=== PATIENT | female | born 1995 | race Hispanic/Latino ===

== ENCOUNTER → 2023-08-02 | Emergency (ER) | payer SELFPAY ==
[~2023-08-02] MED LIST: FAMOTIDINE 20 MG/2 ML VIAL IV ONE; NA CHLORIDE 0.9% 1,000 ML ONE; ONDANSETRON 4 MG/2 ML VIAL ONE; PROMETHAZINE INJ 25 MG/ML AMP ONE
--- OUTSIDE RECORDS SUMMARY | 2023-08-02 09:59 | XMS REPORT | Continuity of Care Document ---
Author Name Unknown Address [address] [facility] [address] [place] [address] [facility] Address [address] [facility] [address] [place] [address] Care Team Providers Care Lathe Scalper Operator Name Role Phone Denis Carter Attending Clinician Unavailable Davar_P Attending Clinician Unavailable Davar_P Admitting Clinician Unavailable Payers Payer Name Policy Type Policy Number Effective Date Expirati on Date Source Allergies, Adverse Reactions, Alerts Allergy Name Allergy Type Status Severity Reaction(s) Onset Date Inactive Date Treating Clinician Comments Source No Known Drug Allergie s DA Active U 03-18 00:00: 00 [facility] Encounters Start Date/Time End Date/Time Encounter Type Admission Type Attending Clinicians Care Facility Care Department Encounter ID Source 2023-03-18 02:10:00 2023-03-18 03:55:00 Emergency Emergency Denis Carter [facility] [id number] [facility] 2021-07-19 03:51:00 2021-07-19 03:51:00 Outpatient Davar_P VFP VFP [id number] [facility] e
[2023-08-02 11:27] LABS: Absolute Lymphocytes (CBC) 1.3 K/uL (0.7-4.9); Hematocrit 49.2 % (36.0-45.0); Lymphocytes % 9.4 % (15.3-44.8); MCV 87.1 fL (80-100); MPV 7.9 fL (7.6-11.3); Platelets 411 thou/uL (152-406); RBC Red Blood Cell Count 5.64 M/uL (3.86-4.86)
[2023-08-02 11:51] LABS: Albumin 4.4 g/dL (3.4-5.0); Bilirubin Total 0.7 mg/dL (0.2-1.0); Potassium 3.8 mEq/L (3.5-5.1); Protein, Total 9.1 g/dL (6.4-8.2)
--- NOTE | 2023-08-02 12:42 | EDPHYS ---
Physician Documentation [facility] Name: Alma Morrison Age: 28 yrs Sex: Female : 1995 Arrival Date: 08/02/2023 Time: 09:57 Bed 15 Private MD: ED Physician Ang Lopez HPI: 08/02 11:41 This 28 yrs old Female presents to ER via Ambulatory with complaints of ms3 Dehydrated. 11:41 28-year-old female with no past medical history presents to the emergency department ms3 for nausea, vomiting that has been ongoing for 3 days. Patient denies sick contacts. Patient denies pain. Patient denies any alleviating or inciting factors. 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 - Social history:: Smoking status: Patient denies any tobacco usage or history of. ROS: 11:41 Constitutional: Negative for fever, and chills. Neck: Negative for injury, pain, and ms3 swelling, Cardiovascular: Negative for chest pain, and palpitations. Respiratory: Negative for shortness of breath, cough, wheezing, and pleuritic chest pain, 11:41 MS/Extremity: Negative for injury and deformity, Skin: Negative for injury, rash, and discoloration, 11:41 Abdomen/GI: Positive for nausea and vomiting, Negative for abdominal pain, diarrhea, 11:41 All other systems are negative, Exam: 11:41 Constitutional: This is a well developed, well nourished patient who is awake, alert, ms3 and in no acute distress. Head/Face: Normocephalic, atraumatic. Neck: Trachea midline, no cervical lymphadenopathy. Supple, full range of motion without nuchal rigidity, or vertebral point tenderness. No Meningismus. Cardiovascular: Regular rate and rhythm with a normal S1 and S2. No gallops, murmurs, or rubs. Normal PMI, no JVD. No pulse deficits. Respiratory: Lungs have equal breath sounds bilaterally, clear to auscultation and percussion. No rales, rhonchi or wheezes noted. No increased work of breathing, no retractions or nasal flaring. Abdomen/GI: Soft, non-tender, with normal bowel sounds. No distension or tympany. No guarding or rebound. No evidence of tenderness throughout. Skin: Warm, dry with normal turgor. Normal color with no rashes, no lesions, and no evidence of cellulitis. MS/ Extremity: Pulses equal, no cyanosis. Neurovascular intact. Full, normal range of motion. Vital Signs: 10:12 BP 119 / 87; Pulse 63; Resp 16; Temp 98.2(TE); Pulse Ox 97% on R/A; Weight 45.36 kg; hb Height 5 ft. 2 in. ; Pain 8/10; 11:19 BP 104 / 68; Pulse 59; Resp 15; Pulse Ox 100% on R/A; mb9 12:00 BP 111 / 71; Pulse 59; Resp 18; Pulse Ox 100% on R/A; me1 13:00 BP 115 / 90; Pulse 55; Resp 16; Pulse Ox 100% on R/A; me1 14:00 BP 106 / 75; Pulse 71; Resp 16; Pulse Ox 100% on R/A; me1 14:47 BP 117 / 86; Pulse 68; Resp 17; Pulse Ox 100% on R/A; me1 10:12 Body Mass Index 18.29 (45.36 kg, 157.48 cm) hb 10:12 Pain Scale: Adult hb MDM: 10:40 Patient medically screened. ms3 11:41 Differential diagnosis: Nonspecific abd pain, gastritis, Dehydration versus electrolyte ms3 abnormality. 15:03 Data reviewed: vital signs, nurses notes, lab test result(s), radiologic studies, CT ms3 scan, and as a result, I will discharge patient. I considered the following discharge prescriptions or medication management in the emergency department Medications were administered in the Emergency Department. See MAR. Independent interpretation of the following test(s) in the Emergency Department CT Scan: My interpretation is CT abdomen pelvis images reviewed by me do not reveal bowel obstruction. Counseling: I had a detailed discussion with the patient and/or guardian regarding the historical points, exam findings, and any diagnostic results supporting the discharge/admit diagnosis, lab results, radiology results, the need for outpatient follow up, to return to the emergency department if symptoms worsen or persist or if there are any questions or concerns that arise at home. ED course: Discussed labs, CT images with patient. Patient to follow-up with primary care physician 2 to 3 days. Patient understands agrees with plan. All questions were answered. Return precautions discussed include worsening symptoms, or any other concerns. 08/02 10:27 Order name: CBC with Diff; Complete Time: 11:55 ms3 08/02 10:27 Order name: CMP; Complete Time: 11:55 ms3 08/02 10:27 Order name: Lipase; Complete Time: 11:55 ms3 08/02 13:59 Order name: Test, Urine; Complete Time: 14:24 ct1 08/02 13:46 Order name: CT Abd/Pelvis - IV Contrast Only; Complete Time: 14:43 ms3 08/02 10:27 Order name: IV Saline Lock; Complete Time: 11:13 ms3 08/02 10:27 Order name: Labs collected and sent; Complete Time: 11:13 ms3 08/02 12:07 Order name: PO challenge; Complete Time: 12:45 ms3 Administered Medications: 11:13 Drug: NS 0.9% IV 1000 ml IV at 1 bolus Per protocol; 1000 mL bolus Route: IV; Rate: 1 mb9 bolus; Site: right upper arm; 12:51 Follow up: IV Status: Completed infusion; IV Intake: 1000ml me1 11:18 Drug: Famotidine IVP 20 mg IVP once; dilute with 10 mL 0.9% NaCl; give over 2 minutes mb9 Route: IVP; Site: right upper arm; 12:51 Follow up: Response: No adverse reaction me1 12:51 Drug: Ondansetron IVP 4 mg IVP once; over 2 minutes Route: IVP; Site: right upper arm; me1 13:53 Follow up: Response: No adverse reaction; Nausea unchanged me1 13:51 Drug: Promethazine IM 25 mg IM once Route: IM; Site: right gluteus; me1 14:32 Follow up: Response: No adverse reaction; Nausea is decreased me1 Disposition Summary: 08/02/23 14:44 Discharge Ordered Notes: Location: Home(08/02/23 14:44) ms3 Condition: Stable(08/02/23 14:44) ms3 Diagnosis - Nausea with vomiting, unspecified(08/02/23 14:44) ms3 - Dehydration(08/02/23 14:44) ms3 Followup: ms3 - With: Rambo Seo DO - When: 2 - 3 days - Reason: Recheck today's complaints Discharge Instructions: - Discharge Summary Sheet ms3 - Nausea and Vomiting, Adult ms3 Forms: - Medication Reconciliation Form ms3 - Thank You Letter ms3 - Antibiotic Education ms3 - Prescription Opioid Use ms3 - Patient Portal Instructions ms3 - Leadership Thank You Letter ms3 Prescriptions: - ondansetron 4 mg Oral Tablet,disintegrating - take 1 tablet ORAL route every 8 hours as needed for nausea and vomiting; 15 ms3 tablet; Refills: 0, Product Selection Permitted Signatures: Dispatcher [employer] EDMS Aline Gavin, RN RN Ang Lopez DO DO ms3 Ama, Sujey Schmitz, RN RN mb9 Guerita Montemayor RN RN me1 Corrections: (The following items were deleted from the chart) 12:48 12:41 Home ms3 ms3 12:48 12:41 Stable ms3 ms3 12:48 12:41 Nausea with vomiting, unspecified ms3 ms3 12:48 12:41 Dehydration ms3 ms3 13:45 13:13 Home ms3 ms3 13:45 13:13 Stable ms3 ms3 13:45 13:13 Nausea with vomiting, unspecified ms3 ms3 13:45 13:13 Dehydration ms3 ms3 14:03 14:00 Test, Urine+UC.LAB.BRZ ordered. EDMS EDMS
--- NOTE | 2023-08-02 12:42 | ER ---
Nurse's Notes [facility] Name: Alma Morrison Age: 28 yrs Sex: Female : 1995 Arrival Date: 08/02/2023 Time: 09:57 Bed 15 Private MD: Diagnosis: Nausea with vomiting, unspecified;Dehydration Presentation: 08/02 10:12 Chief complaint: N/V, low back pain, and pain with urination x 2-3 days. Not tolerating hb fluids. Coronavirus screen: At this time, the client does not indicate any symptoms associated with coronavirus-19. Ebola Screen: No symptoms or risks identified at this time. Initial Sepsis Screen: Does the patient meet any 2 criteria? No. Patient's initial sepsis screen is negative. Does the patient have a suspected source of infection? No. Patient's initial sepsis screen is negative. Risk Assessment: Do you want to hurt yourself or someone else? Patient reports no desire to harm self or others. Onset of symptoms was July 31, 2023. 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 - Social history:: Smoking status: Patient denies any tobacco usage or history of. Screenin:24 [facility] ED Fall Risk Assessment (Adult) History of falling in the last 3 months, mb9 including since admission No falls in past 3 months (0 pts) Confusion or Disorientation No (0 pts) Intoxicated or Sedated No (0 pts) Impaired Gait No (0 pts) Mobility Assist Device Used No (0 pt) Altered Elimination No (0 pt) Score/Fall Risk Level 0 - 2 = Low Risk Oriented to surroundings, Maintained a safe environment, Educated pt \\T\\ family on fall prevention, incl call for assistance when getting out of bed. Abuse screen: Denies threats or abuse. Nutritional screening: No deficits noted. Tuberculosis screening: No symptoms or risk factors identified. Assessment: 11:12 General: Appears uncomfortable, Behavior is calm, cooperative. Pain: Complains of pain mb9 in back. Neuro: Patel Agitation-Sedation Scale (RASS): 0 - Alert and Calm Level of Consciousness is awake, alert, obeys commands, Oriented to person, place, time, situation, Appropriate for age. Cardiovascular: Patient's skin is warm and dry. Respiratory: Airway is patent Respiratory effort is even, unlabored, Respiratory pattern is regular, symmetrical. GI: Abdomen is flat, non-distended, Bowel sounds present X 4 quads. Abd is soft and non tender X 4 quads. Reports nausea, vomiting. : Urine is cloudy. EENT: No signs and/or symptoms were reported regarding the EENT system. Derm: Skin is pink, warm \\T\\ dry. Musculoskeletal: Range of motion: intact in all extremities. 12:46 General: Given some clear liquid options and saltine crackers. Refused stating, "my me1 stomach hurts really bad. I'm gonna throw up if I try that.". Vital Signs: 10:12 BP 119 / 87; Pulse 63; Resp 16; Temp 98.2(TE); Pulse Ox 97% on R/A; Weight 45.36 kg; hb Height 5 ft. 2 in. ; Pain 8/10; 11:19 BP 104 / 68; Pulse 59; Resp 15; Pulse Ox 100% on R/A; mb9 12:00 BP 111 / 71; Pulse 59; Resp 18; Pulse Ox 100% on R/A; me1 13:00 BP 115 / 90; Pulse 55; Resp 16; Pulse Ox 100% on R/A; me1 14:00 BP 106 / 75; Pulse 71; Resp 16; Pulse Ox 100% on R/A; me1 14:47 BP 117 / 86; Pulse 68; Resp 17; Pulse Ox 100% on R/A; me1 10:12 Body Mass Index 18.29 (45.36 kg, 157.48 cm) hb 10:12 Pain Scale: Adult hb ED Course: 09:58 Patient arrived in ED. mr 10:03 Ang Lopez DO is Attending Physician. ms3 10:14 Triage completed. hb 10:18 Arm band placed on. hb 10:23 Sujey Serrato RN is Primary Nurse. mb9 10:24 Placed in gown. Bed in low position. Call light in reach. Side rails up X 1. Client mb9 placed on continuous cardiac and pulse oximetry monitoring. NIBP monitoring applied. 11:12 No provider procedures requiring assistance completed. mb9 11:19 Inserted 20 g Midline placed to right upper arm by PRECIOUS Elizabeth. mb9 12:08 Report given to PRECIOUS Dexter. mb9 12:41 Rambo Seo DO is Referral Physician. ms3 13:13 Rambo Seo DO is Referral Physician. ms3 14:30 CT Abd/Pelvis - IV Contrast Only In Process Unspecified. EDMS 14:44 Rambo Seo DO is Referral Physician. ms3 14:57 Provided Education on: POC. Verbalized understanding. . me1 14:57 IV discontinued, intact, bleeding controlled, No redness/swelling at site. Pressure me1 dressing applied. Administered Medications: 11:13 Drug: NS 0.9% IV 1000 ml IV at 1 bolus Per protocol; 1000 mL bolus Route: IV; Rate: 1 mb9 bolus; Site: right upper arm; 12:51 Follow up: IV Status: Completed infusion; IV Intake: 1000ml me1 11:18 Drug: Famotidine IVP 20 mg IVP once; dilute with 10 mL 0.9% NaCl; give over 2 minutes mb9 Route: IVP; Site: right upper arm; 12:51 Follow up: Response: No adverse reaction me1 12:51 Drug: Ondansetron IVP 4 mg IVP once; over 2 minutes Route: IVP; Site: right upper arm; me1 13:53 Follow up: Response: No adverse reaction; Nausea unchanged me1 13:51 Drug: Promethazine IM 25 mg IM once Route: IM; Site: right gluteus; me1 14:32 Follow up: Response: No adverse reaction; Nausea is decreased me1 Medication: 11:13 VIS not applicable for this client. mb9 Intake: 12:51 IV: 1000ml; Total: 1000ml. me1 Outcome: 12:41 Discharge ordered by . ms3 13:13 Discharge ordered by . ms3 14:44 Discharge ordered by . ms3 14:56 Discharged to left with staff member from [facility]. me1 14:56 Condition: stable 14:56 Discharge instructions given to patient, Instructed on discharge instructions, follow up and referral plans. medication usage, Demonstrated understanding of instructions, follow-up care, medications, Prescriptions given X 1, 15:40 Patient left the ED. me1 Signatures: Dispatcher [employer] EDMS PiterSujey, Woody Mckay mr RomaineAline, RN RN Ang Lopez, DO ms3 Sujey Serrato, RN RN mb9 Guerita Montemayor RN RN me1 Corrections: (The following items were deleted from the chart) 14:03 14:02 Test, Urine+UC.LAB.BRZ drawn and sent. me1 EDOH
[2023-08-02 14:10] LABS: Specific Gravity > 1.030 (1.005-1.030)
--- NOTE | 2023-08-02 14:37 | RAD REPORT ---
EXAM DESCRIPTION: CTAbdomen Pelvis W Contrast - 08/02/2023 2:28 pm CLINICAL HISTORY: Abdominal pain. vomiting COMPARISON: No comparisons TECHNIQUE: Biphasic CT imaging of the abdomen and pelvis was performed with 100 ml non-ionic IV cont rast. All CT scans are performed using dose optimization technique as appropriate and may include automated exposure control or mA/KV adjustment according to patient size. FINDINGS: The lung bases are clear. The liver, spleen, pancreas, adrenal glands and kidneys are within normal limits. No bowel obstruction, free air, free fluid or abscess. There is fluid and gaseous distention of sever al small bowel loops in the central abdomen. There is a large amount of stool in the rectal vault. Th e appendix is normal. No evidence of significant lymphadenopathy. No suspicious bony findings. IMPRESSION: Gaseous and fluid distention of multiple small bowel loops are present in the central ab domen with mild wall thickening. The pattern is nonspecific but may indicate enteritis or inflammator y bowel disease. There is a large amount of stool seen in the rectum.
[2023-08-02 16:13] VITALS: BP 117/86; TEMP 98.2; O2SAT 100
== END ==
LOC: ER 09:57
DX: R11.2 Nausea with vomiting, unspecified (principal); E86.0 Dehydration
CPT/HCPCS: 36415; 74177; 80053; 81025; 83690; 85025; J2405; J2550; J7030; Q9967